=== PATIENT | male | born 1995 | race Caucasian/White ===

== ENCOUNTER 2020-01-10 00:08 | Emergency (ER) | payer MEDICAID ==
[~2020-01-10] VITALS: Ht 177.8 cm; Wt 116.7 kg
[2020-01-10] MEDS ORDERED: BACITRACIN ZINC OINT UDPKT TOP ONE (01:00)
[2020-01-10] MEDS ORDERED: LIDOCAINE HCL/PF 1% 10 MG/ML 5ML VIAL IJ ONE (01:00)
[2020-01-10] MEDS ORDERED: IBUPROFEN 600MG TABLET PO ONE (01:00)
[2020-01-10] MEDS ORDERED: TETANUS, DIPHTHERIA, PERTUSSIS VAC/PF 0.5ML (>7YR OLD) IM ONE (01:00)
[2020-01-10 02:33] VITALS: BP 128/76
== END 2020-01-10 02:34 | disposition home or self-care (01) ==
LOC: ER 00:27
DX: S61.212A Laceration without foreign body of right middle finger without damage to nail, initial encounter (principal); W26.0XXA Contact with knife, initial encounter; Y93.89 Activity, other specified; Y92.89 Other specified places as the place of occurrence of the external cause; Y99.8 Other external cause status; J45.909 Unspecified asthma, uncomplicated; Z98.890 Other specified postprocedural states
CPT/HCPCS: 12001; 90471; 90715; 99283; J3490

== ENCOUNTER 2021-08-11 18:29 | Emergency (ER) | payer MEDICAID ==
[~2021-08-11] VITALS: Ht 180.3 cm; Wt 114.0 kg
[2021-08-11] MEDS ORDERED: AMOX-424 MT (23:38)
[2021-08-11] MEDS ORDERED: TETANUS, DIPHTHERIA, PERTUSSIS VAC/PF 0.5ML (>10YR OLD) IM ONE (23:45)
[2021-08-11] MEDS ORDERED: BACITRACIN ZINC OINT UDPKT TOP ONE (23:45)
[2021-08-12 00:20] VITALS: BP 139/75
== END 2021-08-12 00:21 | disposition home or self-care (01) ==
LOC: ER 18:29
DX: S81.851A Open bite, right lower leg, initial encounter (principal); W54.0XXA Bitten by dog, initial encounter; Y93.89 Activity, other specified; Y92.488 Other paved roadways as the place of occurrence of the external cause
CPT/HCPCS: 90471; 90715; 99283